=== PATIENT | male | born 1955 | race Caucasian/White ===

== ENCOUNTER 2017-03-24 16:52 | Emergency (ER) | payer OTHER ==
[~2017-03-24] VITALS: Ht 177.8 cm; Wt 82.0 kg
[2017-03-24 16:57] VITALS: BP 160/79; PULSE 63; RESP 16; TEMP 98.1; O2SAT 99
[2017-03-24] MEDS ORDERED: ZOLO25TA PO (17:08)
[2017-03-24] MEDS ORDERED: TAMS0.4C4 PO (17:08)
[2017-03-24] MEDS ORDERED: BUPIVACAINE HCL PF 0.5% 10 ML VIAL INFIL ONE (17:30)
[2017-03-24] MEDS ORDERED: LIDOCAINE HCL 1% 50 ML VIAL INFIL ONE (17:30)
--- NOTE | 2017-03-24 17:36 | PD ---
HPI Chief Complaint: Injury Time Seen by Provider: 17:30 Travel History International Travel<30 days: No Contact w/Intl Traveler<30days: No Traveled to known affect area: No History of Present Illness HPI 61-year-old male presents to the emergency room for evaluation of an injury to left third finger that occurred just prior to arrival. Patient states his finger was sitting near his boat crank when his turned on the winch and his finger got caught in the gear. Patient rinsed his finger with hydrogen peroxide, applied pressure, and then came to the emergency room. He is not on any blood thinners. Reports mild to moderate pain. Denies paresthesias. Last tetanus was this week. PFSH Past Medical History Arthritis: Yes Depression: Yes Diminished Hearing: No Immunizations Current: Yes Tetanus Vaccination: < 5 Years Influenza Vaccination: Yes Social History Alcohol Use: Yes (social) Tobacco Use: No Substance Use: No Allergies-Medications (Allergen,Severity, Reaction): Coded Allergies: Dilaudid (Verified Allergy, Unknown, Itching, 03/24/17) Penicillin (Verified Allergy, Unknown, Hives, 03/24/17) Reported Meds & Prescriptions Reported Meds & Active Scripts Active Keflex (Cephalexin) 500 Mg Capsule 500 Mg PO Q6H 10 Days Reported Tamsulosin (Tamsulosin HCl) 0.4 Mg Cap 0.4 Mg PO HS Zoloft (Sertraline HCl) 25 Mg Tab 25 Mg PO DAILY Review of Systems Except as stated in HPI: all other systems reviewed are Neg Physical Exam Narrative GENERAL: Well-nourished, well-developed male in no acute distress. Afebrile. Ambulatory. SKIN: Focused skin assessment warm/dry. There is a 2 cm laceration extending on the dorsal side of the left third distal phalanx extending through the nail. HEAD: Normocephalic. EYES: No scleral icterus. No injection or drainage. NECK: Supple, trachea midline. No JVD or lymphadenopathy. CARDIOVASCULAR: Regular rate and rhythm without murmurs, gallops, or rubs. RESPIRATORY: Breath sounds equal bilaterally. No accessory muscle use. MUSCULOSKELETAL: No cyanosis, or edema. Full range of motion of the finger. Less than 2 second capillary refill distally. Data Data Last Documented VS Vital Signs Date Time Temp Pulse Resp B/P Pulse Ox O2 Delivery O2 Flow Rate FiO2 03/24/17 16:57 98.1 63 16 160/79 99 Orders Finger ([id number]) (03/24/17 ) Bupivacaine Pf 0.5% Inj (Marcaine Pf 0.5 (03/24/17 17:30) Lidocaine 1% Inj (50 Ml) (Xylocaine 1% I (03/24/17 17:30) MDM Medical Decision Making Medical Screen Exam Complete: Yes Emergency Medical Condition: Yes Medical Record Reviewed: Yes Differential Diagnosis Laceration, fracture, open fracture, contusion, abrasion Narrative Course 61-year-old male presents to the emergency room for evaluation of injury to the left third finger that occurred just prior to arrival. Patient got his finger caught in the boat winch. Reports mild to moderate pain. There is a 2 cm laceration extending on the dorsal side of the left third distal phalanx extending through the nail. Patient's tetanus is up-to-date. X-ray shows a distal tuft fracture. Wound was thoroughly irrigated and repaired, see procedure note for details. Patient was discharged with prescription for Keflex and wound care instructions and told to follow-up with a hand surgeon or return to the emergency room for worsening symptoms. He understands and agrees to plan. Procedures Procedure Narrative LACERATION LOCATION: Left third distal phalanx LENGTH: 2 cm NUMBER OF STITCHES/RACHID: 6 simple interrupted, 3 dissolvable simple interrupted REPAIR: The area of the laceration was prepped with Betadine and sterilely draped. Digital block was performed using 50/50 combination of 1% lidocaine and 0.5% bupivacaine. The wound was copiously irrigated and explored without evidence of foreign body, tendon injury or neurovascular injury. The wound was closed using 5-0 Prolene. This was a single layer repair. A sterile dressing was applied. The patient was advised to keep the dressing clean and dry. Patient tolerated the procedure well. Diagnosis Primary Impression: Open fracture of tuft of distal phalanx of finger Referrals: Primary Care Physician Patient Instructions: Finger Fracture (ED), Finger Laceration (ED), General Instructions Additional Instructions: Keep wound clean and dry. Apply triple antibiotic ointment daily. Sutures out in 7-10 days. Keflex as directed, until gone. Take ibuprofen with food as directed, as needed for pain. Apply ice to the affected area for 20 minutes at a time, as needed for pain and swelling. Follow-up with a hand surgeon. Return to the emergency room for worsening symptoms. Med/Other Pt SpecificInfo: Prescription(s) given Scripts Cephalexin (Keflex)500 Mg [id number] Mg PO Q6H 10 Days Ref 0 Prov:Rivera Fonseca MD 03/24/17 Disposition: 01 DISCHARGE HOME Condition: Stable Aleida Gutierrez Mar 24, 2017 17:36
--- NOTE | 2017-03-24 18:15 | RADRPT ---
EXAM DATE/TIME: 03/24/2017 17:39 [facility] COMPARISON: No previous studies available for comparison. INDICATIONS : Crush injury tip of left middle finger from anchor winch MEDICAL HISTORY : None. SURGICAL HISTORY : None. ENCOUNTER: Initial ACUITY: 1 day PAIN SCORE: 2/10 LOCATION: Left 3rd finger FINDINGS: 3 views of the left third digit. Fracture of the tip of the long finger distal phalanx tuft. Fracture fragment measures 6 mm. It is displaced 2-4 mm. 2 mm calcific density at the dorsal base of the dist al phalanx may represent a second fracture versus arthritic change. CONCLUSION: Fracture of the tuft of the long finger distal phalanx. Small bone fragment also seen in the dorsal b ase of the distal phalanx. Paras Pabon MD on March 24, 2017 at 18:11 Board Certified Radiologist. This report was verified electronically.
[2017-03-24] MEDS ORDERED: CEPH-460 PO (19:00)
== END 2017-03-24 19:11 | disposition home or self-care (01) ==
LOC: PHEFT 16:52
DX: S62.633B Displaced fracture of distal phalanx of left middle finger, initial encounter for open fracture (principal); S61.313A Laceration without foreign body of left middle finger with damage to nail, initial encounter; Z87.39 Personal history of other diseases of the musculoskeletal system and connective tissue; Z86.59 Personal history of other mental and behavioral disorders; W31.89XA Contact with other specified machinery, initial encounter; Y92.814 Boat as the place of occurrence of the external cause
CPT/HCPCS: 12001; 73140

== ENCOUNTER 2017-11-03 17:34 | Emergency (ER) | payer OTHER ==
[~2017-11-03] VITALS: Ht 177.8 cm; Wt 80.0 kg
[~2017-11-03 17:34] MED LIST: CEPH-460 PO; TAMS0.4C4 PO; ZOLO25TA PO
[2017-11-03 17:41] VITALS: BP 182/94; PULSE 72; RESP 16; TEMP 97.7; O2SAT 99
[2017-11-03] MEDS ORDERED: DULO1CAP2 PO (18:11)
--- NOTE | 2017-11-03 18:24 | RADRPT ---
EXAM DATE/TIME: 11/03/2017 18:09 [facility] COMPARISON: No previous studies available for comparison. INDICATIONS : Laceration from table saw at distal thumb. MEDICAL HISTORY : None. SURGICAL HISTORY : None. ENCOUNTER: Initial ACUITY: 1 day PAIN SCORE: 9/10 LOCATION: Right upper extremity FINDINGS: Examination of the first digit of the right hand demonstrates no evidence of fracture or dislocation. No radiopaque foreign bodies are seen. The soft tissues are intact. CONCLUSION: Negative for fracture. Real Reyes MD FACR on November 03, 2017 at 18:20 Board Certified Radiologist. This report was verified electronically.
[2017-11-03] MEDS ORDERED: LIDOCAINE HCL 1% 50 ML VIAL INFIL ONE (18:45)
[2017-11-03] MEDS ORDERED: LIDOCAINE HCL 1% PF 30 ML VIAL ONE (18:53)
[2017-11-03] MEDS ORDERED: BACT800T5 PO (19:38)
--- NOTE | 2017-11-03 19:39 | PD ---
HPI Chief Complaint: Laceration/Skin Injury Time Seen by Provider: 18:01 Travel History International Travel<30 days: No Contact w/Intl Traveler<30days: No Traveled to known affect area: No History of Present Illness HPI 61-year-old male here with a laceration to the right thumb caused by table saw prior to arrival. He denies paresthesia in the digit. He reports moderate pain at the site of the laceration. Bleeding is well-controlled. Tetanus immunization is up-to-date. He can flex and extend the finger without difficulty. PFSH Past Medical History Arthritis: Yes Depression: Yes Diminished Hearing: No Reproductive: Yes (PROSTATE) Immunizations Current: Yes Tetanus Vaccination: < 5 Years Influenza Vaccination: Yes Social History Alcohol Use: Yes (social DAILY) Tobacco Use: No Substance Use: No Allergies-Medications (Allergen,Severity, Reaction): Coded Allergies: hydromorphone (Verified Allergy, Unknown, Itching, 11/03/17) penicillin G (Verified Allergy, Unknown, Hives, 11/03/17) Reported Meds & Prescriptions Reported Meds & Active Scripts Active Reported Duloxetine DR (Duloxetine HCl) 30 Mg Capdr 30 Mg PO DAILY Tamsulosin (Tamsulosin HCl) 0.4 Mg Cap 0.4 Mg PO HS Zoloft (Sertraline HCl) 25 Mg Tab 25 Mg PO DAILY Review of Systems Except as stated in HPI: all other systems reviewed are Neg General / Constitutional: No: Fever Eyes: No: Visual changes HENT: No: Headaches Cardiovascular: No: Chest Pain or Discomfort Respiratory: No: Shortness of Breath Gastrointestinal: No: Abdominal Pain Genitourinary: No: Dysuria Physical Exam Narrative GENERAL: Alert well-appearing 61-year-old male SKIN: Warm and dry. HEAD: Normocephalic. EYES: No injection or drainage. NECK: Supple MUSCULOSKELETAL: No cyanosis, or edema. Right upper extremity: 2 cm flap laceration to the distal aspect of the right thumb. The flap has good coloration. Normal sensation of the tip of the thumb. Brisk cap refill. Patient can flex and extend the thumb without difficulty. Data Data Last Documented VS Vital Signs Date Time Temp Pulse Resp B/P (MAP) Pulse Ox O2 Delivery O2 Flow Rate FiO2 11/03/17 17:41 97.7 72 16 182/94 (123) 99 Orders Orders Finger ([id number]) (11/03/17 ) Lidocaine 1% Inj (50 Ml) (Xylocaine 1% I (11/03/17 18:45) Lidocaine Pf 1% Inj (Xylocaine-Mpf 1% In (11/03/17 18:53) MDM Medical Decision Making Medical Screen Exam Complete: Yes Emergency Medical Condition: Yes Differential Diagnosis Finger laceration, finger fracture, nail injury Narrative Course 61-year-old male with a laceration to the right thumb caused by table saw. The digit is neurovascularly intact. X-rays negative for fracture or foreign body. The wound was thoroughly irrigated and laceration repair performed. Patient tolerated procedure well. He will be referred to hand surgeon for follow-up. Patient verbalizes understanding and agrees to plan Procedures Procedure Narrative LACERATION LOCATION: Right thumb LENGTH: 2 cm NUMBER OF STITCHES/RACHID: 6 REPAIR: The area of the laceration was prepped with Betadine and sterilely draped. Digital block performed using 1% lidocaine. The wound was copiously irrigated and explored without evidence of foreign body, tendon injury or neurovascular injury. The wound was closed using 4-0 Prolene. This was a Single layer repair. A sterile dressing was applied. The patient was advised to keep the dressing clean and dry. Patient tolerated the procedure well. Diagnosis Primary Impression: Finger laceration Qualified Codes: S61.111A - Laceration without foreign body of right thumb with damage to nail, initial encounter Referrals: Cielo Nation MD Hand Surgeon Additional Instructions: Sutures need to be removed in 7-10 days Do not submerge the wound in water. Cleansed the area daily with soap and water. Apply thin layer of antibiotic ointment and cover with a dressing. Follow-up with the hand surgeon Return if new or worsening symptoms Scripts Sulfamethoxazole-Trimethoprim (Bactrim DS) 800-160 Mg Tab 1 TAB PO BID for Infection, #14 TAB 0 Refills Prov: Lakia Hart 11/03/17 Disposition: 01 DISCHARGE HOME Condition: Stable Lakia Hart Nov 03, 2017 19:39
== END 2017-11-03 19:51 | disposition home or self-care (01) ==
LOC: PHEFT 17:34
DX: S61.011A Laceration without foreign body of right thumb without damage to nail, initial encounter (principal); M19.90 Unspecified osteoarthritis, unspecified site; F32.9 Major depressive disorder, single episode, unspecified; W31.2XXA Contact with powered woodworking and forming machines, initial encounter; Z88.5 Allergy status to narcotic agent; Z88.0 Allergy status to penicillin; Z79.899 Other long term (current) drug therapy
CPT/HCPCS: 12001; 73140